=== PATIENT | female | born 1995 | race Caucasian/White ===

== ENCOUNTER 2016-07-05 09:33 | Emergency (ER) | payer OTHER ==
[~2016-07-05 09:33] MED LIST: COLACE 100MG C100 MG PO; DIPHENHYDRAMINE25 M1 PO; HYDROXYZINE HCL25 MG PO; IBUPROFEN600 MG PO; NORCO 5-325 TA1 EACH PO; PRENATAL VITAMIN PO; PROMETHAZINE12.5 M1 PO; UNISOM25 MG PO; VITAMIN B-625 MG PO
[2016-07-05 11:31] LABS: RED BLOOD COUNT 4.26 M/UL (4.00-5.10); WHITE BLOOD COUNT 11.1 K/UL (4.5-11.0)
[2016-07-05 11:47] LABS: BUN/CREATININE RATIO 20 (0-10)
== END 2016-07-05 14:55 | disposition home or self-care (01) ==
LOC: ER1 09:33
PROVIDERS: Student in an Organized Health Care Education/Training Program
DX: N83.202 Unspecified ovarian cyst, left side (principal); R91.8 Other nonspecific abnormal finding of lung field; F17.210 Nicotine dependence, cigarettes, uncomplicated
CPT/HCPCS: 36415; 80053; 81001; 83690; 84703; 85025; 99284; J7050; Q9962